=== PATIENT | female | born 1965 | race Caucasian/White ===

== ENCOUNTER 2017-01-25 13:01 | Emergency (ER) | payer MEDICAID ==
[~2017-01-25] VITALS: Ht 162.6 cm; Wt 80.0 kg
[~2017-01-25 13:01] MED LIST: AMLO5TAB88 PO; ATOR80TA PO; BACL-141 PO; GABA-290 PO; GABA-531 PO; HYDR-3927 GT; HYDR25TA PO; METF10002 PO; METO25TA6 PO; NORT10CA PO
[2017-01-25] MEDS ORDERED: MORPHINE SULFATE 4 MG/ML CPJ (NOT FOR IM USE) IV ONE (17:15)
[2017-01-25] MEDS ORDERED: SODIUM CHLORIDE 0.9% 1,000 ML IV ONE (17:15)
[2017-01-25 17:51] LABS: CHLORIDE 107 mEq/L (98-107)
[2017-01-25 17:54] LABS: BASOPHILS % 0.9 % (0.0-2.0); EOSINOPHILS % 2.5 % (0.0-5.0); HEMATOCRIT. 43.8 % (36.0-48.0); HEMOGLOBIN. 13.6 g/dL (12.0-16.0); LYMPHOCYTES % 28.9 % (20.0-50.0); MEAN CORPUSCULAR HEMOGLOBIN 25.5 pg (28.0-32.0); MEAN CORPUSCULAR VOLUME 82.3 fL (81.0-99.0); NEUTROPHILS % 61.7 % (40.0-76.0); PLATELET 377 x1000/uL (130-400); RED BLOOD CELL COUNT 5.32 mill/uL (4.2-5.4); RED CELL DISTRIBUTION WIDTH 14.8 % (11.6-14.6)
[2017-01-25 17:57] LABS: CARBON DIOXIDE 20 mEq/L (21-32)
[2017-01-25 18:13] LABS: CLARITY URINE CLOUDY (CLEAR); COLOR URINE YELLOW (YELLOW); GLUCOSE URINE NEGATIVE (NEGATIVE); KETONES URINE NEGATIVE (NEGATIVE); LEUKOCYTE ESTERASE URINE NEGATIVE (NEGATIVE); NITRITE URINE NEGATIVE (NEGATIVE); OCCULT BLOOD URINE TRACE (NEGATIVE); PROTEIN URINE NEGATIVE (NEGATIVE); SPECIFIC GRAVITY URINE 1.028 (1.005-1.030)
[2017-01-25] MEDS ORDERED: DIPHENHYDRAMINE 50MG/ML VIAL IV ONE ×2 (18:15→19:00)
[2017-01-25] MEDS ORDERED: ACETAMINOPHEN 325MG TABLET PO ONE (20:30)
[2017-01-25 21:33] VITALS: BP 129/74
== END 2017-01-25 21:36 | disposition home or self-care (01) ==
LOC: ER 16:35
DX: R10.32 Left lower quadrant pain (principal); K76.0 Fatty (change of) liver, not elsewhere classified; K42.9 Umbilical hernia without obstruction or gangrene; J45.909 Unspecified asthma, uncomplicated; E11.9 Type 2 diabetes mellitus without complications; I10 Essential (primary) hypertension; Z90.710 Acquired absence of both cervix and uterus; Z90.49 Acquired absence of other specified parts of digestive tract; Z88.8 Allergy status to other drugs, medicaments and biological substances
CPT/HCPCS: 36415; 74176; 80048; 81001; 81025; 85025; 96361; 96374; 96375; 96376; 99285; J1200; J2270; J7030; Z7610

== ENCOUNTER 2017-04-17 13:35 | Emergency (ER) | payer MEDICAID ==
[~2017-04-17] VITALS: Ht 160 cm; Wt 95.0 kg
[2017-04-17 14:08] VITALS: BP 142/97
== END 2017-04-17 15:09 | disposition home or self-care (01) ==
LOC: ER 13:35
DX: L03.012 Cellulitis of left finger (principal); E11.9 Type 2 diabetes mellitus without complications; I10 Essential (primary) hypertension; Z87.828 Personal history of other (healed) physical injury and trauma; Z90.710 Acquired absence of both cervix and uterus; Z88.6 Allergy status to analgesic agent
CPT/HCPCS: 99283; X7700

== ENCOUNTER 2017-09-06 18:15 | Emergency (ER) | payer MEDICAID ==
[~2017-09-06] VITALS: Ht 160 cm; Wt 87.0 kg
[2017-09-06 18:39] VITALS: BP 133/89
== END 2017-09-07 00:20 | disposition left against medical advice (07) ==
LOC: ER 21:59
DX: M54.9 Dorsalgia, unspecified (principal); R10.30 Lower abdominal pain, unspecified; R11.10 Vomiting, unspecified; I10 Essential (primary) hypertension; E11.9 Type 2 diabetes mellitus without complications; J45.909 Unspecified asthma, uncomplicated; N39.0 Urinary tract infection, site not specified; Z90.49 Acquired absence of other specified parts of digestive tract; Z90.710 Acquired absence of both cervix and uterus
CPT/HCPCS: 81025; 99282

== ENCOUNTER 2018-12-30 14:15 | Emergency (ER) | payer MEDICAID ==
[~2018-12-30] VITALS: Ht 160 cm; Wt 98.0 kg
[~2018-12-30 14:15] MED LIST changes: +ASPI-986 MT; +CLOP75TA4 MT; +GABA-290 MT; -GABA-290 PO; -GABA-531 PO; +HYDR-4009 MT; +METF-416 PO; -METF10002 PO; -NORT10CA PO; +NORT25CA MT
[2018-12-30] MEDS ORDERED: MORPHINE SULFATE 4 MG/ML CPJ (NOT FOR IM USE) IV STA (14:55)
[2018-12-30] MEDS ORDERED: SODIUM CHLORIDE 0.9% 1,000 ML IV ONE (14:55)
[2018-12-30] MEDS ORDERED: ONDANSETRON HCL 4MG/2ML INJ IV STA (14:55)
[2018-12-30 15:16] LABS: BASOPHILS % 1.2 % (0.0-2.0); EOSINOPHILS % 1.4 % (0.0-5.0); HEMATOCRIT. 38.3 % (36.0-48.0); HEMOGLOBIN. 12.2 g/dL (12.0-16.0); LYMPHOCYTES % 17.8 % (20.0-50.0); MEAN CORPUSCULAR HEMOGLOBIN 26.1 pg (28.0-32.0); MEAN CORPUSCULAR VOLUME 82.2 fL (81.0-99.0); MEAN PLATELET VOLUME 7.8 fl (7.4-10.4); MONOCYTES % 6.3 % (2.0-8.0); NEUTROPHILS % 73.3 % (40.0-76.0); PLATELET 296 x1000/uL (130-400); RED BLOOD CELL COUNT 4.66 mill/uL (4.2-5.4); RED CELL DISTRIBUTION WIDTH 14.7 % (11.6-14.6)
[2018-12-30 15:22] LABS: CHLORIDE 108 mEq/L (98-107)
[2018-12-30 15:54] LABS: CLARITY URINE CLOUDY (CLEAR); COLOR URINE YELLOW (YELLOW); KETONES URINE NEGATIVE (NEGATIVE); LEUKOCYTE ESTERASE URINE NEGATIVE (NEGATIVE); NITRITE URINE NEGATIVE (NEGATIVE); OCCULT BLOOD URINE 1+ (NEGATIVE); PROTEIN URINE NEGATIVE (NEGATIVE); SPECIFIC GRAVITY URINE 1.021 (1.005-1.030); UROBILINOGEN URINE 0.2 E.U./dL (0.2-1.0)
[2018-12-30] MEDS ORDERED: DIPHENHYDRAMINE 50MG/ML VIAL IV ONE (16:15)
[2018-12-30] MEDS ORDERED: HYDROCODONE/ACETAMINOPHEN 5/325MG TABLET PO ONE (18:00)
[2018-12-30 18:14] VITALS: BP 124/72
== END 2018-12-30 18:19 | disposition home or self-care (01) ==
LOC: ER 14:21
DX: N39.0 Urinary tract infection, site not specified (principal); B37.9 Candidiasis, unspecified; K52.9 Noninfective gastroenteritis and colitis, unspecified; I10 Essential (primary) hypertension; E11.9 Type 2 diabetes mellitus without complications; Z79.899 Other long term (current) drug therapy; Z79.84 Long term (current) use of oral hypoglycemic drugs
CPT/HCPCS: 36415; 74176; 80053; 81003; 83690; 85025; 96361; 96374; 96375; 99284; J1200; J2270; J2405; J7030

== ENCOUNTER 2020-01-26 02:21 | Inpatient (IN) | payer MEDICAID ==
[~2020-01-26] VITALS: Ht 160 cm; Wt 95.3 kg
[2020-01-26] MEDS ORDERED: ASPIRIN 81MG TABLET PO ONE (03:00)
[2020-01-26 03:15] LABS: BASOPHILS % 0.7 % (0.0-2.0); EOSINOPHILS % 1.2 % (0.0-5.0); HEMATOCRIT. 39.5 % (36.0-48.0); HEMOGLOBIN. 12.6 g/dL (12.0-16.0); LYMPHOCYTES % 18.3 % (20.0-50.0); MEAN CORPUSCULAR HEMOGLOBIN 25.2 pg (28.0-32.0); MEAN PLATELET VOLUME 7.9 fl (7.4-10.4); MONOCYTES % 6.3 % (2.0-8.0); NEUTROPHILS % 73.5 % (40.0-76.0); PLATELET 443 x1000/uL (130-400); RED BLOOD CELL COUNT 4.99 mill/uL (4.2-5.4); RED CELL DISTRIBUTION WIDTH 15.9 % (11.6-14.6)
[2020-01-26 03:21] LABS: CHLORIDE 102 mEq/L (98-107)
[2020-01-26] MEDS ORDERED: NITROGLYCERIN 0.4MG TABLET SL SL ONE (03:45)
[2020-01-26] MEDS ORDERED: ONDANSETRON HCL 4MG/2ML INJ IV ONE (03:45)
[2020-01-26] MEDS ORDERED: VISCOUS LIDOCAINE 2% 15 ML UDC PO ONE (05:45)
[2020-01-26] MEDS ORDERED: MAGNESIUM/ALUMINUM HYDROXIDE/SIMETHICONE 30ML UDC PO ONE (05:45)
[2020-01-26] MEDS ORDERED: NITROGLYCERIN 0.4MG TABLET SL SL PRN (07:30)
[2020-01-26] MEDS ORDERED: GUAIFENESIN 200MG/10ML SUGAR FREE UDC PO PRN (07:30)
[2020-01-26] MEDS ORDERED: CLONIDINE 0.1MG TABLET PO PRN (07:30)
[2020-01-26] MEDS ORDERED: ACETAMINOPHEN 325MG TABLET PO PRN (07:30)
[2020-01-26] MEDS ORDERED: MAGNESIUM/ALUMINUM HYDROXIDE/SIMETHICONE 30ML UDC PO PRN (07:30)
[2020-01-26] MEDS ORDERED: DOCUSATE SODIUM 100MG CAPSULE PO PRN (07:30)
[2020-01-26] MEDS: MORPHINE SULFATE 2 MG/ML CPJ (NOT FOR IM USE) IV PRN ×2 (08:02→13:09)
[2020-01-26] MEDS: CLOPIDOGREL 75MG TABLET PO SCH (08:02)
[2020-01-26] MEDS: ONDANSETRON HCL 4MG/2ML INJ IV PRN (08:02)
[2020-01-26] MEDS ORDERED: DEXTROSE 50% WATER 50ML SYRINGE IV PRN (08:15)
[2020-01-26] MEDS ORDERED: ENOXAPARIN 40MG/0.4ML SYR SUBCUT SCH (09:00)
[2020-01-26] MEDS: BLOOD SUGAR DIAGNOSTIC STRIP TEST SCH ×4 (09:09→21:58)
[2020-01-26] MEDS: INSULIN LISPRO (HIGH DOSE) 100 UNITS/ML SUBCUT SCH ×4 (09:09→20:53)
[2020-01-26 09:15] VITALS: BP 120/67
[2020-01-26 10:00] VITALS: BP 120/67
[2020-01-26] MEDS: AMLODIPINE 10MG TABLET PO SCH (10:47)
[2020-01-26] MEDS ORDERED: LISI-604 PO (11:27)
[2020-01-26] MEDS ORDERED: ASPI-1497 MT (11:27)
[2020-01-26] MEDS ORDERED: GLIP10TA10 PO (11:27)
[2020-01-26] MEDS ORDERED: SOTA80TA MT (11:27)
[2020-01-26] MEDS ORDERED: GABA800T97 MT (11:27)
[2020-01-26] MEDS ORDERED: RIVA20TA MT (11:27)
[2020-01-26 11:39] LABS: T4 FREE 1.34 ng/dL (0.76-1.46)
[2020-01-26 12:00] VITALS: BP 101/65
[2020-01-26] MEDS ORDERED: DIATR MEGLU/DIATRIZOATE SOLN 30ML ONE (12:14)
[2020-01-26] MEDS ORDERED: IOHEXOL-300 50 ML BOTTLE IV ONE (12:15)
[2020-01-26] MEDS ORDERED: IOHEXOL-350 100 ML BOTTLE ONE (12:47)
[2020-01-26] MEDS ORDERED: DIPHENHYDRAMINE 50MG/ML VIAL IV PRN (13:15)
[2020-01-26 16:00] VITALS: BP 127/67
[2020-01-26] MEDS: RIVAROXABAN 20 MG TABLET PO SCH (16:27)
[2020-01-26 16:47] LABS: CREATINE KINASE 32 IU/L (26-192)
[2020-01-26 16:48] LABS: CREATINE KINASE MB FRACTION < 1.0 ng/mL (0.5-3.6)
[2020-01-26 20:00] VITALS: BP 111/69
[2020-01-27] VITALS: BP 127/91
[2020-01-27 00:22] LABS: CREATINE KINASE 27 IU/L (26-192)
[2020-01-27 00:24] LABS: CREATINE KINASE MB FRACTION < 1.0 ng/mL (0.5-3.6)
[2020-01-27 04:00] VITALS: BP 125/52
[2020-01-27] MEDS: BLOOD SUGAR DIAGNOSTIC STRIP TEST SCH ×4 (06:07→20:11)
[2020-01-27] MEDS: INSULIN LISPRO (HIGH DOSE) 100 UNITS/ML SUBCUT SCH ×4 (06:08→20:21)
[2020-01-27 06:18] LABS: BASOPHILS % 0.7 % (0.0-2.0); HEMATOCRIT. 33.4 % (36.0-48.0); HEMOGLOBIN. 10.4 g/dL (12.0-16.0); LYMPHOCYTES % 28.6 % (20.0-50.0); MEAN CORPUSCULAR HEMOGLOBIN 24.7 pg (28.0-32.0); MEAN CORPUSCULAR VOLUME 79.4 fL (81.0-99.0); MEAN PLATELET VOLUME 7.7 fl (7.4-10.4); MONOCYTES % 7.6 % (2.0-8.0); NEUTROPHILS % 62.1 % (40.0-76.0); PLATELET 347 x1000/uL (130-400); RED BLOOD CELL COUNT 4.21 mill/uL (4.2-5.4); RED CELL DISTRIBUTION WIDTH 15.8 % (11.6-14.6)
[2020-01-27 06:36] LABS: CHLORIDE 104 mEq/L (98-107)
[2020-01-27 06:44] LABS: LDL CHOLESTEROL 110 mg/dL (5-100)
[2020-01-27 06:45] LABS: HDL CHOLESTEROL 39 mg/dL (40-59)
[2020-01-27 06:48] LABS: CREATINE KINASE MB FRACTION < 1.0 ng/mL (0.5-3.6)
[2020-01-27 08:00] VITALS: BP 114/90
[2020-01-27] MEDS: ONDANSETRON HCL 4MG/2ML INJ IV PRN (08:51)
[2020-01-27] MEDS: CLOPIDOGREL 75MG TABLET PO SCH (08:58)
[2020-01-27] MEDS ORDERED: SOTALOL HCL 80MG TABLET PO SCH (09:00)
[2020-01-27] MEDS: AMLODIPINE 10MG TABLET PO SCH (09:02)
[2020-01-27 12:00] VITALS: BP 128/74
[2020-01-27 16:00] VITALS: BP 143/77
[2020-01-27] MEDS: RIVAROXABAN 20 MG TABLET PO SCH (17:16)
[2020-01-27 20:00] VITALS: BP 121/70
[2020-01-27] MEDS: SOTALOL HCL 80MG TABLET PO SCH (20:17)
[2020-01-28] VITALS (7 sets, daily range): BP systolic 101–124; BP diastolic 59–77
[2020-01-28] MEDS: BLOOD SUGAR DIAGNOSTIC STRIP TEST SCH ×4 (05:34→21:59)
[2020-01-28] MEDS: INSULIN LISPRO (HIGH DOSE) 100 UNITS/ML SUBCUT SCH ×4 (06:20→22:12)
[2020-01-28] MEDS: SOTALOL HCL 80MG TABLET PO SCH ×2 (09:03→20:33)
[2020-01-28] MEDS: AMLODIPINE 10MG TABLET PO SCH (09:04)
[2020-01-28] MEDS: LORAZEPAM 2MG/ML CPJ IV PRN ×2 (09:04→17:30)
[2020-01-28] MEDS: CLOPIDOGREL 75MG TABLET PO SCH (09:04)
[2020-01-28] MEDS: RIVAROXABAN 20 MG TABLET PO SCH (17:30)
[2020-01-29] VITALS: BP 104/60
[2020-01-29] MEDS: LORAZEPAM 2MG/ML CPJ IV PRN ×2 (01:27→10:05)
[2020-01-29 04:00] VITALS: BP 109/73
[2020-01-29] MEDS: INSULIN LISPRO (HIGH DOSE) 100 UNITS/ML SUBCUT SCH ×2 (06:07→12:25)
[2020-01-29] MEDS: BLOOD SUGAR DIAGNOSTIC STRIP TEST SCH ×2 (06:07→12:05)
[2020-01-29 08:00] VITALS: BP 120/83
[2020-01-29] MEDS: CLOPIDOGREL 75MG TABLET PO SCH (08:43)
[2020-01-29] MEDS: AMLODIPINE 10MG TABLET PO SCH (08:43)
[2020-01-29] MEDS: SOTALOL HCL 80MG TABLET PO SCH (08:43)
[2020-01-29 11:53] VITALS: BP 117/70
[2020-01-29 13:23] VITALS: BP 117/70
[2020-01-29] MEDS ORDERED: ATORVASTATIN CALCIUM 20MG TABLET PO SCH (21:00)
== END 2020-01-29 15:10 | disposition home or self-care (01) | DRG 201 ==
LOC: ER 02:51 → 8WST 05:37 → ENRESERV 08:06
PROVIDERS: ADMIT Hospitalist; ATTEND Hospitalist
PROC: 05H533Z Insertion of Infusion Device into Right Subclavian Vein, Percutaneous Approach (ICD-10-PCS; principal; 2020-01-26)
PROC: B516ZZA Fluoroscopy of Right Subclavian Vein, Guidance (ICD-10-PCS; 2020-01-26)
PROC: B546ZZA Ultrasonography of Right Subclavian Vein, Guidance (ICD-10-PCS; 2020-01-26)
DX: I47.1 Supraventricular tachycardia (principal); M94.0 Chondrocostal junction syndrome [Tietze]; I25.10 Atherosclerotic heart disease of native coronary artery without angina pectoris; I47.2 Ventricular tachycardia; E11.9 Type 2 diabetes mellitus without complications; E66.9 Obesity, unspecified; I10 Essential (primary) hypertension; I48.92 Unspecified atrial flutter; I48.91 Unspecified atrial fibrillation; Z88.8 Allergy status to other drugs, medicaments and biological substances; Z79.891 Long term (current) use of opiate analgesic; Z79.899 Other long term (current) drug therapy; Z79.82 Long term (current) use of aspirin; Z79.84 Long term (current) use of oral hypoglycemic drugs; Z90.49 Acquired absence of other specified parts of digestive tract; Z98.61 Coronary angioplasty status; I87.1 Compression of vein; Z86.711 Personal history of pulmonary embolism; Z87.891 Personal history of nicotine dependence; Z68.37 Body mass index [BMI] 37.0-37.9, adult
CPT/HCPCS: 36415; 36573; 71045; 71275; 80053; 80061; 82550; 82553; 82962; 83036; 83735; 83880; 84439; 84443; 84484; 85025; 85379; 93005; 93306; 93970; 99285; C1725; J1200; J1650; J1815; J2060; J2270; J2405; Q9963; Q9967

== ENCOUNTER 2020-12-17 15:43 | Emergency (ER) | payer MEDICAID ==
[~2020-12-17] VITALS: Ht 160 cm; Wt 90.0 kg
[~2020-12-17 15:43] MED LIST changes: -AMLO5TAB88 PO; +ASPI-1497 MT; -ASPI-986 MT; -ATOR80TA PO; -BACL-141 PO; -CLOP75TA4 MT; -GABA-290 MT; +GABA800T97 MT; +GLIP10TA10 PO; -HYDR-3927 GT; -HYDR25TA PO; +LISI20TA31 PO; -METF-416 PO; -METO25TA6 PO; -NORT25CA MT; +RIVA20TA MT; +SOTA80TA MT
[2020-12-17] MEDS ORDERED: ONDANSETRON 4MG ODT PO ONE (18:15)
[2020-12-17] MEDS ORDERED: HYDROCODONE/ACETAMINOPHEN 5/325MG TABLET PO ONE (18:15)
[2020-12-17 18:35] VITALS: BP 148/89
[2020-12-17 19:09] LABS: CLARITY URINE CLEAR (CLEAR); COLOR URINE YELLOW (YELLOW); KETONES URINE TRACE (NEGATIVE); LEUKOCYTE ESTERASE URINE TRACE (NEGATIVE); NITRITE URINE NEGATIVE (NEGATIVE); OCCULT BLOOD URINE NEGATIVE (NEGATIVE); PROTEIN URINE NEGATIVE (NEGATIVE); SPECIFIC GRAVITY URINE 1.032 (1.005-1.030)
[2020-12-17] MEDS ORDERED: PYR200 MT (20:16)
[2020-12-17] MEDS ORDERED: CEPH500C2 MT (20:16)
[2020-12-17] MEDS ORDERED: TRAM50TA MT (20:16)
== END 2020-12-17 20:34 | disposition home or self-care (01) ==
LOC: ER 16:37
DX: N12 Tubulo-interstitial nephritis, not specified as acute or chronic (principal); I10 Essential (primary) hypertension
CPT/HCPCS: 74176; 81003; 87086; 99284; Q0162